=== PATIENT | female | born 1995 | race African-American/Black ===

== ENCOUNTER 2017-01-10 07:06 | Emergency (ER) | payer SELFPAY ==
[2017-01-10] MEDS ORDERED: Sodium Chloride 0.9% 2.5 ML Syringe FLUSH PRN (07:39)
[2017-01-10] MEDS ORDERED: Ketorolac 30 MG/ML SDV IVPUSH ONE (07:39)
[2017-01-10] MEDS ORDERED: Ondansetron 4 MG/2 ML SDV IVPUSH ONE (07:39)
[2017-01-10] MEDS ORDERED: Sodium Chloride 0.9% 10 ML Syringe FLUSH PRN (07:39)
[2017-01-10] MEDS ORDERED: Sodium Chloride 0.9% 1,000 ML IV ONE (07:39)
--- NOTE | 2017-01-10 07:44 | EDM.PDOC ---
ED HPI GENERAL MEDICAL PROBLEM - General Chief Complaint: Abdominal Pain Stated Complaint: ABDOMINAL PAIN Time Seen by Provider: 01/10/17 07:22 - History of Present Illness INITIAL COMMENTS - FREE TEXT/NARRATIVE: HISTORY AND PHYSICAL: History of present illness: The patient is a 21-year-old female with a 2 week history of loose watery stools episodically some nausea and intermittent vomiting and lower abdominal pain. The patient was seen in the clinic on January 07 and and had CBC CMP urine test H. pylori and stool studies all of which were normal. The patient represents today saying that since she had those tests she was feeling better and the stools were becoming more formed and then this morning she started having watery stools again and has lower abdominal cramping/pain and has nausea and vomiting. She says she is able to tolerate water but nothing more than that his last evening. She's not had fevers cough runny nose or sore throat and has no urinary symptoms. The patient is not taking anything over-the- counter for the diarrhea or the pain. The patient has no GI history and no abdominal surgical history. The patient's last period was December 26 and she had a negative urine test on January 07 Review of systems: As per history of present illness and below otherwise all systems reviewed and negative. Past medical history: As per history of present illness and as reviewed below otherwise noncontributory. Surgical history: As per history of present illness and as reviewed below otherwise noncontributory. Social history: No reported history of drug or alcohol abuse. Family history: As per history of present illness and as reviewed below otherwise noncontributory. Physical exam: Gen.: Well-developed overweight female who is nontoxic and vital signs have been reviewed by me. HEENT: Atraumatic, normocephalic, pupils reactive, negative for conjunctival pallor or scleral icterus, mucous membranes moist, throat clear, neck supple, nontender, trachea midline. Lungs: Clear to auscultation, breath sounds equal bilaterally, chest nontender. Heart: S1S2, regular, negative for clicks, rubs, or JVD. Abdomen: Soft, nondistended, bowel sounds are slightly hypoactive and there is no tympany on percussion. The patient has tenderness in the lower abdomen diffusely without rebound or guarding. Negative for masses or hepatosplenomegaly. Negative for costovertebral tenderness. Pelvis: Stable nontender. Genitourinary: Deferred. Rectal: Deferred. Extremities: Atraumatic, negative for cords or calf pain. Neurovascular unremarkable. Neuro: Awake, alert, oriented. Cranial nerves II through XII unremarkable. Cerebellum unremarkable. Motor and sensory unremarkable throughout. Exam nonfocal. Diagnostics: CBC CMP amylase lipase CT scan of the abdomen and pelvis Therapeutics: IV fluids Zofran Toradol Bentyl Patient's pain is improved and I discussed with her all testing results and I will also discuss these results with her provider in the clinic, Mukund Nesbitt. I will give her Zofran and Bentyl for home Impression: Lower abdominal pain with diarrhea and vomiting improved Definitive disposition and diagnosis as appropriate pending reevaluation and review of above. hypogastric area Pain Score (Numeric/FACES): 9 - Related Data Allergies Allergy/AdvReac Type Severity Reaction Status Date / Time No Known Allergies Allergy Verified 01/10/17 07:29 Home Meds: Home Meds . [No Known Home Meds] 01/10/17 [History] Past Medical History - Past Health History Medical/Surgical History: Denies Medical/Surgical History Social & Family History - Family History Family Medical History: Noncontributory - Tobacco Use Smoking Status *Q: Never Smoker - Recreational Drug Use Recreational Drug Use: No ED ROS GENERAL - Review of Systems Review Of Systems: ROS reveals no pertinent complaints other than HPI. ED EXAM, GENERAL - Physical Exam Exam: See Below (See dictation) Course - Vital Signs Last Recorded V/S: Last Vital Signs Temp 36.2 C 01/10/17 07:23 Pulse 64 01/10/17 08:09 Resp 18 01/10/17 08:09 BP 136/80 01/10/17 08:09 Pulse Ox 98 01/10/17 08:09 - Orders/Labs/Meds Orders: Active Orders 24 hr Category Date Time Status Sodium Chloride 0.9% [Saline Flush] Med 01/10/17 07:39 Active 10 ml FLUSH ASDIRECTED PRN Sodium Chloride 0.9% [Saline Flush] Med 01/10/17 07:39 Active 2.5 ml FLUSH ASDIRECTED PRN Saline Lock Insert [OM.PC] Stat Oth 01/10/17 07:39 Ordered Medication Orders Sodium Chloride (Saline Flush) 10 ml FLUSH ASDIRECTED PRN PRN Reason: Keep Vein Open Sodium Chloride (Saline Flush) 2.5 ml FLUSH ASDIRECTED PRN PRN Reason: Keep Vein Open Labs: Laboratory Tests 01/10/17 01/10/17 Range/Units 07:44 07:44 WBC 5.74 (4.0-11.0) K/uL RBC 3.89 L (4.30-5.90) M/uL Hgb 12.3 (12.0-16.0) g/dL Hct 38.4 (36.0-46.0) % MCV 98.7 H (80.0-98.0) fL MCH 31.6 (27.0-32.0) pg MCHC 32.0 (31.0-37.0) g/dL RDW Std Deviation 44.5 (28.0-62.0) fl RDW Coeff of Franci 12 (11.0-15.0) % Plt Count 223 (150-400) K/uL MPV 11.00 (7.40-12.00) fL Neut % (Auto) 50.8 (48.0-80.0) % Lymph % (Auto) 40.8 H (16.0-40.0) % Sullivan % (Auto) 7.5 (0.0-15.0) % Eos % (Auto) 0.7 (0.0-7.0) % Baso % (Auto) 0.2 (0.0-1.5) % Neut # (Auto) 2.9 (1.4-5.7) K/uL Lymph # (Auto) 2.3 (0.6-2.4) K/uL Sullivan # (Auto) 0.4 (0.0-0.8) K/uL Eos # (Auto) 0.0 (0.0-0.7) K/uL Baso # (Auto) 0.0 (0.0-0.1) K/uL Nucleated RBC % 0.0 /100WBC Nucleated RBCs # 0 K/uL Sodium 139 (136-146) mmol/L Potassium 4.2 (3.5-5.1) mmol/L Chloride 109 (98-110) mmol/L Carbon Dioxide 22 (21-31) mmol/L BUN 10 (6.0-23.0) mg/dL Creatinine 0.7 (0.6-1.5) mg/dL Est Cr Clr Drug Dosing 99.70 mL/min Estimated GFR (MDRD) > 60.0 ml/min Glucose 85 (60-110) mg/dL Calcium 9.4 (8.8-10.8) mg/dL Total Bilirubin 0.6 (0.1-1.5) mg/dL AST 16 (5-40) IU/L ALT 14 (8-54) IU/L Alkaline Phosphatase 50 (40-150) Total Protein 7.1 (6.0-8.0) g/dL Albumin 4.0 (3.5-5.0) g/dL Globulin 3.1 (2.0-3.5) g/dL Albumin/Globulin Ratio 1.3 (1.3-2.8) Amylase 51 (10-90) U/L Lipase 12 (7-80) U/L Meds: Medications Generic Name Dose Route Start Last Admin Trade Name Freq PRN Reason Stop Dose Admin Sodium Chloride 10 ml 01/10/17 07:39 Saline Flush FLUSH ASDIRECTED PRN Keep Vein Open Sodium Chloride 2.5 ml 01/10/17 07:39 Saline Flush FLUSH ASDIRECTED PRN Keep Vein Open Discontinued Medications Generic Name Dose Route Start Last Admin Trade Name Freq PRN Reason Stop Dose Admin Dicyclomine HCl 20 mg 01/10/17 09:08 Bentyl PO 01/10/17 09:09 ONETIME ONE Sodium Chloride 1,000 mls @ 999 mls/hr 01/10/17 07:39 01/10/17 07:56 Normal Saline IV 01/10/17 08:39 999 mls/hr STAT ONE Administration Iopamidol 100 ml 01/10/17 08:44 01/10/17 08:48 Isovue Multipack-370 (76%) IVPUSH 01/10/17 08:45 100 ml ONETIME STA Administration Ketorolac Tromethamine 30 mg 01/10/17 07:39 01/10/17 07:56 Toradol IVPUSH 01/10/17 07:40 30 mg ONETIME ONE Administration Ondansetron HCl 4 mg 01/10/17 07:39 01/10/17 07:56 Zofran IVPUSH 01/10/17 07:40 4 mg ONETIME ONE Administration Departure - Departure Time of Disposition: 09:15 Disposition: Home, Self-Care 01 Condition: Good Clinical Impression: Abdominal pain Qualifiers: Abdominal location: lower abdomen, unspecified Qualified Code(s): R10.30 - Lower abdominal pain, unspecified Diarrhea Qualifiers: Diarrhea type: unspecified type Qualified Code(s): R19.7 - Diarrhea, unspecified Vomiting Qualifiers: Vomiting type: unspecified Vomiting Intractability: non-intractable Nausea presence: with nausea Qualified Code(s): R11.2 - Nausea with vomiting, unspecified - Discharge Information Forms: ED Department Discharge Additional Instructions: The following information is given to patients seen in the emergency department who are being discharged to home. This information is to outline your options for follow-up care. We provide all patients seen in our emergency department with a follow-up referral. The need for follow-up, as well as the timing and circumstances, are variable depending upon the specifics of your emergency department visit. If you don't have a primary care physician on staff, we will provide you with a referral. We always advise you to contact your personal physician following an emergency department visit to inform them of the circumstance of the visit and for follow-up with them and/or the need for any referrals to a consulting specialist. The emergency department will also refer you to a specialist when appropriate. This referral assures that you have the opportunity for followup care with a specialist. All of these measure are taken in an effort to provide you with optimal care, which includes your followup. Under all circumstances we always encourage you to contact your private physician who remains a resource for coordinating your care. When calling for followup care, please make the office aware that this follow-up is from your recent emergency room visit. If for any reason you are refused follow-up, please contact the [facility] emergency department at and ask to speak to the emergency department charge nurse. [facility] Primary care- Internal Medicine and Family [address] [address] Please push hydration such as water and Gatorade and use medications, Bentyl and Zofran, as prescribed and needed. Please call and follow-up in the clinic next week for further care and evaluation return here as needed and as discussed - My Orders Last 24 Hours: My Active Orders 01/10/17 07:39 Sodium Chloride 0.9% [Saline Flush] 10 ml FLUSH ASDIRECTED PRN Sodium Chloride 0.9% [Saline Flush] 2.5 ml FLUSH ASDIRECTED PRN Saline Lock Insert [OM.PC] Stat - Assessment/Plan Last 24 Hours: My Active Orders 01/10/17 07:39 Sodium Chloride 0.9% [Saline Flush] 10 ml FLUSH ASDIRECTED PRN Sodium Chloride 0.9% [Saline Flush] 2.5 ml FLUSH ASDIRECTED PRN Saline Lock Insert [OM.PC] Stat
[2017-01-10 08:21] LABS: CHLORIDE,CL 109 mmol/L (98-110); SODIUM,NA 139 mmol/L (136-146)
[2017-01-10] MEDS ORDERED: Iopamidol 755 MG/ML 500 ML Multipack Bottle IVPUSH STA (08:44)
--- NOTE | 2017-01-10 09:03 | CT ---
CT of the abdomen and pelvis with contrast. HISTORY: Pain TECHNIQUE: Axial CT images were obtained of the abdomen and pelvis following administration of 100 m L of Isovue-370 in the left antecubital fossa without complication. Coronal and sagittal reconstruct ions obtained. FINDINGS: The lung bases are grossly clear. The liver, spleen, adrenal glands, and pancreas appear normal. The gallbladder is grossly unremarkab le. There is no bulky retroperitoneal lymphadenopathy or abdominal ascites. The kidneys enhance and function symmetrically without evidence of obstructive uropathy. The large and small bowel are normal in caliber without evidence of obstruction. No focal pericoloni c inflammation or stranding. The appendix is normal in caliber. The urinary bladder appears normal. Trace free pelvic fluid, likely physiologic. The ovaries appear grossly unremarkable. No pelvic lymp hadenopathy. The urinary bladder appears normal. Endometrial stripe is mildly prominent and heteroge neous at 1.4 cm. There is a tiny fat-containing umbilical hernia. No suspicious osseous abnormality is identified. IMPRESSION: 1. No definite acute findings within the abdomen or pelvis. 2. Mildly prominent and heterogeneous endometrial stripe, correlate with menstrual cycle. 3. Tiny fat-containing umbilical hernia.
[2017-01-10] MEDS ORDERED: Dicyclomine 10 MG Cap PO ONE (09:08)
[2017-01-10 09:33] VITALS: BP 114/83
== END 2017-01-10 09:30 | disposition home or self-care (01) ==
LOC: MW.ED 07:06
DX: R10.30 Lower abdominal pain, unspecified (principal); R19.7 Diarrhea, unspecified; R11.2 Nausea with vomiting, unspecified
CPT/HCPCS: 36415; 74177; 80053; 82150; 83690; 85025; 96361; 96374; 96375; 99284; A9270; J1885; J2405; J7040; Q9967